=== PATIENT | male | born 1940 | race Caucasian/White ===

== ENCOUNTER 2016-08-14 06:31 | Observation (INO) | payer MEDICARE, OTHER ==
[~2016-08-14] VITALS: Ht 190.5 cm; Wt 99.1 kg
[~2016-08-14 06:31] MED LIST: ATOR20TA15 PO; DETR4CAP PO; FEXO180T PO; LEVO100T5 PO; OMEP20TA PO; TERA10CA3 PO; VITA20004 PO
[2016-08-14] MEDS: LACTATED RINGER'S 1000 ML IV SCH (07:15)
[2016-08-14 07:22] VITALS: BP 153/74; PULSE 69; RESP 18; TEMP 97.9; O2SAT 96
[2016-08-14] MEDS: SODIUM CHLORID 0.9% 500 ML IV SCH ×2 (07:45→21:53)
[2016-08-14] MEDS ORDERED: METOPROLOL TARTRATE 25 MG TAB PO PRN (07:45)
[2016-08-14] MEDS ORDERED: AMPICILLIN 1 GM/NS 100 ML IV SCH ×2 (07:45)
[2016-08-14] MEDS ORDERED: GENTAMICIN INJ 240 MG in SODIUM CHLORIDE 0.9% INJ 100 ML IV SCH (07:45)
[2016-08-14] MEDS ORDERED: INSULIN HUMAN REGULAR 1,000 UNITS/10 ML VIAL SQ PRN (07:45)
[2016-08-14] MEDS ORDERED: FAMOTIDINE 20 MG/2 ML VIAL ONE (09:26)
[2016-08-14] MEDS ORDERED: MIDAZOLAM HCL 2 MG/2 ML VIAL ONE (09:26)
[2016-08-14] MEDS ORDERED: DEXAMETHASONE SOD PHOS 4 MG/ML VIAL ONE (09:27)
[2016-08-14] MEDS ORDERED: fentaNYL CITRATE 250 MCG/5 ML AMP ONE (09:27)
--- NOTE | 2016-08-14 11:12 | PD.OP ---
Operative Report Date of Surgery: Aug 14, 2016 Preoperative Diagnosis: BPH with obstruction, acute urinary retention Postoperative Diagnosis: Same Procedure: Cystoscopy, transurethral resection of the prostate Anesthesia: MAURO Surgeon: Manav Mckenna [employer] Cook(s): None Operation and Findings: Shanika Shane is a 75-year-old male with a diagnosis of acute urinary retention with indwelling Field catheter for the last 3 months. Cystoscopy revealed large coapting lobes with bladder trabeculation. He was given voiding trials in the past which he failed. He elected to undergo cystoscopy transurethral resection of the prostate. Risk and benefits were discussed including bleeding infection and the inability to urinate; he is willing to proceed. Patient is brought to the operating room and identified as Jose Shane. He was prepped and draped in usual sterile fashion, placed in dorsal lithotomy position, received preprocedure antibiotics, and general endotracheal tube anesthesia was administered. 22 Monegasque scope was inserted the bladder. Dodson cystoscopy showed bladder trabeculations was large coapting lobes of the prostate. 24 resectoscope sheath was inserted into the bladder using the visual obturator. The hot loop was placed at the end of the Downs resectoscope and the TUR commenced. Starting at the 6 o'clock position, working circumferentially, the adenoma was resected. Once that was completed, the rollerball was used then to obtain further hemostasis. Care was taken to avoid extending the incision beyond the veramontana. Once hemostasis was obtained and all the chips were removed using the Kameron evacuator, 22 Monegasque three-way Field catheter was inserted with 20 cc in the balloon and the Field was placed on traction. The catheter was irrigated to clear and he was started on CBI. He was transferred occurring in stable condition. Manav Mckenna DO Aug 14, 2016 11:12
[2016-08-14] MEDS ORDERED: *morphine SULFATE 8 MG/ML PERIprocedure ONLY ONE ×2 (11:27→11:42)
[2016-08-14] MEDS ORDERED: NEOSTIGMINE 3 MG/3 ML SYR IV ONE (11:35)
[2016-08-14] MEDS ORDERED: ONDANSETRON HCL 4 MG/2 ML VIAL IV PUSH ONE (11:35)
[2016-08-14] MEDS ORDERED: PROPOFOL 200 MG/20 ML AMP IV ONE (11:35)
[2016-08-14] MEDS ORDERED: ePHEDrine/NS 25 MG/5 ML SYR IV ONE (11:35)
[2016-08-14] MEDS ORDERED: DO NOT ADM ANY ANTICOAGULANT DRUGS XX PRN (11:45)
[2016-08-14] MEDS: SODIUM CHLOR 0.45% 1000 ML INJ 1,000 ML IV SCH ×2 (11:50→21:49)
[2016-08-14] MEDS ORDERED: ONDANSETRON HCL 4 MG/2 ML VIAL IV PUSH PRN (12:00)
[2016-08-14] MEDS ORDERED: ACETAMINOPHEN 650 MG/20.3 ML UDC PO PRN (12:00)
[2016-08-14] MEDS ORDERED: BELLADONNA ALKALOIDS/OPIUM 60 MG SUPP RECTAL PRN (12:00)
[2016-08-14 12:44] LABS: HEMATOCRIT 39.4 % (39.0-51.0); MEAN CELL VOLUME 83.8 FL (80.0-100.0); MEAN CORPUSCULAR HEMOGLOBIN 28.3 PG (27.0-34.0); MEAN CORPUSCULAR HGB CONC 33.8 % (32.0-36.0); PLATELET COUNT 156 TH/MM3 (150-450); RED CELL DISTRIBUTION WIDTH 14.1 % (11.6-17.2); REVIEW FLAG FINAL; WHITE BLOOD COUNT 6.1 TH/MM3 (4.0-11.0)
[2016-08-14 13:01] LABS: BICARBONATE 25.5 MEQ/L (21.0-32.0); POTASSIUM 4.1 MEQ/L (3.5-5.1)
[2016-08-14] MEDS ORDERED: HYDROmorphone HCL PF 2 MG/ML VIAL ONE (13:48)
[2016-08-14] MEDS ORDERED: HYDROmorphone HCL PF 2 MG/ML VIAL IV PRN (14:15)
[2016-08-14 16:10] VITALS: BP 142/74; PULSE 62; RESP 18; TEMP 95.5; O2SAT 94
[2016-08-14] MEDS: oxyCODONE/ACETAMINOPHEN 5 MG/325 MG TAB PO PRN (17:47)
[2016-08-14 20:00] VITALS: BP 134/67; PULSE 72; RESP 17; TEMP 96; O2SAT 95
[2016-08-14] MEDS ORDERED: TERAZOSIN HCL 5 MG CAP PO SCH (21:00)
[2016-08-15 00:30] VITALS: BP 129/61; PULSE 56; RESP 17; TEMP 96.2; O2SAT 96
[2016-08-15 04:10] VITALS: BP 141/68; PULSE 54; RESP 17; TEMP 96.4; O2SAT 95
[2016-08-15] MEDS ORDERED: LEVOTHYROXINE SODIUM 100 MCG TAB PO SCH (06:00)
[2016-08-15] MEDS: LACTATED RINGER'S 1000 ML IV SCH (07:45)
[2016-08-15 08:00] VITALS: BP 149/59; PULSE 64; RESP 20; TEMP 96; O2SAT 93
[2016-08-15] MEDS: oxyCODONE/ACETAMINOPHEN 5 MG/325 MG TAB PO PRN (08:35)
[2016-08-15] MEDS: SODIUM CHLOR 0.45% 1000 ML INJ 1,000 ML IV SCH (08:46)
[2016-08-15] MEDS ORDERED: PANTOPRAZOLE SOD 20 MG DELAYED RELEASE TAB PO SCH (09:00)
[2016-08-15] MEDS ORDERED: CYANOCOBALAMIN 1,000 MCG TAB PO SCH (09:00)
[2016-08-15] MEDS ORDERED: ATORVASTATIN 20 MG TAB PO SCH (09:00)
[2016-08-15 09:32] VITALS: O2SAT 95
--- NOTE | 2016-08-15 10:06 | HHI.PR ---
Subjective Remarks Pt feels well. No complaints. Urine clear. Objective Vital Signs Vital Signs Date Time Temp Pulse Resp B/P Pulse Ox O2 Delivery O2 Flow Rate FiO2 08/15/16 09:32 95 08/15/16 08:00 96.0 64 20 149/59 93 08/15/16 04:10 96.4 54 17 141/68 95 08/15/16 00:30 96.2 56 17 129/61 96 08/14/16 20:00 96.0 72 17 134/67 95 08/14/16 18:11 Nasal Cannula 2.00 08/14/16 16:10 95.5 62 18 142/74 94 08/14/16 16:04 Nasal Cannula 2.00 08/14/16 15:50 97.5 68 15 138/75 97 Nasal Cannula 2 08/14/16 15:00 70 15 140/79 96 Nasal Cannula 2 08/14/16 14:25 97.5 75 15 145/80 95 Nasal Cannula 2 08/14/16 14:00 76 14 151/82 96 08/14/16 13:00 61 14 177/85 95 08/14/16 12:30 72 12 173/89 95 08/14/16 12:15 68 12 162/83 95 08/14/16 12:00 70 12 150/80 95 08/14/16 11:45 62 10 134/71 97 08/14/16 11:30 70 11 160/87 97 Nasal Cannula 2 08/14/16 11:17 97.6 71 13 170/83 98 Nasal Cannula 2 I/O 08/14/16 08/14/16 08/14/16 08/15/16 08/15/16 08/15/16 07:00 15:00 23:00 07:00 15:00 23:00 Intake Total 950 ml 780 ml 2096 ml Output Total 125 ml 1950 ml 2850 ml Balance 825 ml -1170 ml -754 ml Intake Oral 480 ml 240 ml IV Total 300 ml 1856 ml Other 950 ml Output Urine Total 100 ml 1950 ml 2850 ml Estimated Blood Loss 25 ml # Bowel Movements 0 0 Result Diagram: 08/14/16 1218 08/14/16 1218 Objective Remarks Abd:soft,nt,nd Field with clear urine CBI clamped to off. Assessment and Plan Assessment and Plan Stable s/p TURP D/C home today F/U Donovan for void trial. Manav Mckenna DO Aug 15, 2016 10:06
[2016-08-15] MEDS ORDERED: HYDR-3533 PO (10:55)
[2016-08-15] MEDS ORDERED: LEVA500T PO (10:58)
[2016-08-15 12:00] VITALS: BP 150/67; PULSE 63; RESP 20; TEMP 96; O2SAT 96
--- NOTE | 2016-08-18 06:51 | MD ---
cc: JUAN J CANALES ADMISSION DATE: 08/14/2016 DISCHARGE DATE: 08/15/2016 BRIEF HISTORY Mr. Shane is a 75-year-old male who was admitted yesterday on 08/14 to undergo cystoscopy, transurethral resection of the prostate. HOSPITAL COURSE His operation went well and his postop course was unremarkable. On hospital day #1 he is tolerating a regular diet. He was afebrile, vital signs stable. His urine was clear. He was ambulating without difficulty. DISPOSITION He was discharged on this day and scheduled to follow up on Thursday for a void trial in the office. DISCHARGE INSTRUCTIONS At the time of discharge his instructions included diet, exercise and medications. Juan J METCALF/JAYA /10:13 AM /6:50 AM
== END 2016-08-15 12:11 | disposition home or self-care (01) ==
LOC: HSDC 06:31 → HSDI 11:07 → N06A 16:04
PROVIDERS: ADMIT Urology; ATTEND Urology
DX: N40.1 Benign prostatic hyperplasia with lower urinary tract symptoms (principal); N13.8 Other obstructive and reflux uropathy; N32.89 Other specified disorders of bladder
CPT/HCPCS: 00914; 52601; 80048; 85027; 88305; 94150; G0378; J0290; J0690; J1100; J1170; J1580; J2250; J2270; J2405; J2710; J3010; J7120; 88307